=== PATIENT | male | born 1965 | race Caucasian/White ===

== ENCOUNTER → 2022-02-17 15:10 | Outpatient (CLI) | payer OTHER, SELFPAY ==
--- NOTE | ~2022-02-17 | CT_ITS ---
EXAMINATION: CT abdomen pelvis wo con DATE: 02/17/2022 15:28 INDICATION: Abdominal distention TECHNIQUE: Computed tomography (CT) of the abdomen and pelvis was performed without intravenous contr ast. Automated exposure control and iterative reconstruction technique were employed. The dose-length product was 1158.17 mGy-cm. COMPARISON: None FINDINGS: Small posterior layering left pleural effusion with mild dependent compressive atelectasis in the lef t lower lobe. Mild elevation right hemidiaphragm with tiny right pleural effusion and mild right basi lar atelectasis. Finally there is mild discoid atelectasis at the lingula. Heart size is normal. Athe rosclerotic coronary artery calcification. No pericardial effusion. Large amount of ascites throughout the abdomen and pelvis. Shrunken and nodular cirrhotic liver. Like ly secondary portal venous hypertension with splenomegaly measuring 18.4 cm in maximal length as well as splenorenal collaterals. Gallbladder, pancreas, bilateral adrenal glands and kidneys are normal. Diffuse mesenteric edema. Bladder is decompressed. No bowel obstruction. No pathologically enlarged a bdominal or pelvic lymphadenopathy. There are bridging osteophytes at multiple levels in the mid to l ower thoracic spine, consistent with diffuse idiopathic skeletal hyperostosis (DISH). IMPRESSION: 1. Cirrhosis with likely secondary large amount of ascites in the abdomen and pelvis and portal venou s hypertension with splenomegaly and splenorenal collaterals. 2. Small left and tiny right pleural effusions. Reviewed, dictated and finalized at location B. IMPRESSION: 1. Cirrhosis with likely secondary large amount of ascites in the abdomen and p roger and portal venous hypertension with splenomegaly and splenorenal collater als. 2. Small left and tiny right pleural effusions.
== END ==
PROVIDERS: PCP Family Medicine; Visit Provider Family Medicine
DX: R14.0 Abdominal distension (gaseous) (principal); R19.7 Diarrhea, unspecified; J90 Pleural effusion, not elsewhere classified; K74.60 Unspecified cirrhosis of liver
CPT/HCPCS: 74176

== ENCOUNTER 2022-02-17 16:36 | Emergency (ER) | payer OTHER, SELFPAY ==
[2022-02-17 16:59] VITALS: BP 127/82; PULSE 106; RESP 16; TEMP 37.2; O2SAT 94
[2022-02-17 17:21] LABS: Appearance Urine Clear (Clear); Basophils Percent Auto 0.5 % (0.2-1.2); Bilirubin Urine 1+ (Negative); Blood Urine Negative (Negative); Color Urine Yellow (Yellow); Eosinophils Absolute Auto 0.1 K/mm3 (0-0.3); Eosinophils Percent Auto 0.9 % (0-4.4); Glucose Urine UA Negative (Negative); Hematocrit 31.8 % (42.0-52.0); Hemoglobin 10.1 g/dL (14.0-18.0); Immature Granulocyte Absolute 0.01 K/mm3 (0.00-0.031); Immature Granulocyte Percent A 0.2 % (0-0.5); Ketones Urine Negative (Negative); Leukocyte Esterase Ur Negative LEU/UL (Negative); Lymphocytes Absolute Auto 0.76 K/mm3 (0.9-3.2); Lymphocytes Percent Auto 13.7 % (18.3-44.2); Mean Corpuscular HGB Conc 31.8 g/dl (32-36); Mean Corpuscular Hemoglobin 28.2 pg (26-34); Mean Corpuscular Volume 88.8 fl (80-100); Monocytes Absolute Auto 0.7 K/mm3 (0.1-0.6); Monocytes Percent Auto 12.3 % (2.6-8.5); Neutrophils Percent Auto 72.4 % (45.5-73.1); Nitrate Urine Negative (Negative); Platelet Count Result 134 k/mm3 (150-375); Protein Urine Negative (Negative); Red Blood Count 3.58 M/mm3 (4.6-6.20); Red Cell Distribution Width 16.8 % (11.5-14.5); White Blood Count 5.5 K/mm3 (4.5-10.0); pH Urine 6.5 (5.0-9.0)
[2022-02-17 17:30] LABS: Mucus Urine Rare /lpf; RBC Urine 0-2 /hpf (0-2); Squamous Epithelial Cell Urine Rare /hpf (Few); WBC Urine 0-3 /hpf
[2022-02-17 17:31] LABS: Alanine Aminotransferase 18 U/L (6-50); Albumin Level 3.2 g/dL (3.5-5.1); Alkaline Phosphatase 110 U/L (38-126); Anion Gap 4 mmol/L (8-16); Aspartate Amino Transferase 42 U/L (17-59); Bilirubin,Total 1.9 mg/dL (0.2-1.3); Blood Urea Nitrogen 9 mg/dL (9-20); Calcium 8.4 mg/dL (8.4-10.2); Carbon Dioxide 27 mmol/L (22-30); Chloride 105 mmol/L (98-107); Estimated CRCL calculation 149 ml/min; Estimated Glomerular Filt Rate > 60; Glucose 107 mg/dL (65-110); Potassium 3.4 mmol/L (3.4-5.0); Sodium 136 mmol/L (137-145)
[2022-02-17 17:39] LABS: Add Urine Microscopic? YES
[2022-02-17 19:21] VITALS: BP 136/87; PULSE 100; RESP 17; O2SAT 98
[2022-02-17 20:00] VITALS: BP 141/85; PULSE 100; RESP 27; O2SAT 97
--- NOTE | 2022-02-17 20:30 | ED.GENADULT ---
HPI - General Adult General Chief complaint: Unspecified Stated complaint: fluid on abdomen Time Seen by Provider: 02/17/22 19:07 History of Present Illness HPI narrative: Patient is a 56-year-old male who presents ER with abdominal ascites. Patient has history of cirrhosis of liver related to alcoholism. He sees Dr. Coronado. His primary care doctor got an outpatient CT today that showed large ascites so he told him to come to the ER to obtain a paracentesis. Patient has mild discomfort of the abdomen but reports its been ongoing for 2 months. He has no difficulty breathing. No fevers or chills or sweats. He is not on any blood thinning medications. Normal bowel and bladder function. Related Data Allergies Allergy/AdvReac Type Severity Reaction Status Date / Time codeine Allergy Mild Unknown Verified 02/17/22 19:19 meperidine Allergy Mild Unknown Verified 02/17/22 19:19 RAW FIG Allergy Intermediate RASH Uncoded 02/05/20 10:38 Review of Systems Review of Systems: All systems reviewed & are unremarkable except as noted in HPI and below Constitutional: Constitutional: Denies chills, Denies fatigue and Denies fever(s) Cardiovascular: Cardiovascular: Denies chest pain, Denies rapid heart rate and Denies radiating jaw, neck or arm pain Respiratory: Respiratory: Denies cough, Denies dyspnea and Denies wheezing Gastrointestinal: Gastrointestinal: Denies abdominal pain, Reports bloating, Denies nausea and Denies vomiting Neurologic: Denies syncope, Denies numbness and Denies tingling PMFSH Past Medical History Medical History (Updated 02/17/22 @ 21:02 by Chadwick Lambert MD) Cirrhosis of liver Diabetes Obstructive sleep apnea Surgical History Surgical History (Updated 02/17/22 @ 21:02 by Chadwick Lambert MD) No pertinent past surgical history Social History Social History (Updated 02/17/22 @ 21:02 by Chadwick Lambert MD) Social History: Quit drinking November 2021. Exam Narrative: GENERAL: Chronically ill-appearing, well-nourished, and in no acute distress. HEAD: Normocephalic, atraumatic. CHEST: Clear to auscultation. No respiratory distress. HEART: Regular rate and rhythm. Normal peripheral pulses. ABDOMEN: Protuberant firm abdomen, no erythema. Unable to auscultate bowel sounds due to fluid. EXTREMITIES: Normal range of motion. 3+ edema. SKIN: Warm, dry, no rash. NEURO: Alert and oriented x3. PSYCH: Normal mood and affect. Course Course Emergency Course: Patient resting comfortably. Discussed case with patient's GI physician Dr. Coronado. He would like me to attempt to put in an order for an ultrasound-guided paracentesis, he reports that he would like the patient to call him if he has any issues with scheduling and he will help him. Patient verbalized understanding of this. He does not wish to stay in the hospital as he has a severely ill that requires a lot of care that he aids. He is having noted difficulty breathing and just reports chronic discomfort and prefers to have outpatient procedure Vital Signs Vital signs: Vital Signs Temperature 98.9 F 02/17/22 16:59 Pulse Rate 106 H 02/17/22 16:59 Respiratory Rate 16 02/17/22 16:59 Blood Pressure 127/82 02/17/22 16:59 Pulse Oximetry 94 02/17/22 16:59 Oxygen Delivery Room Air 02/17/22 16:59 Temperature 98.9 F 02/17/22 16:59 Pulse Rate 100 02/17/22 20:00 Respiratory Rate 27 H 02/17/22 20:00 Blood Pressure 141/85 H 02/17/22 20:00 Pulse Oximetry 97 02/17/22 20:00 Oxygen Delivery Room Air 02/17/22 16:59 Medical Decision Making Vital Signs Vital Signs: Vital Signs Temperature 98.9 F 02/17/22 16:59 Pulse Rate 106 H 02/17/22 16:59 Respiratory Rate 16 02/17/22 16:59 Blood Pressure 127/82 02/17/22 16:59 Pulse Oximetry 94 02/17/22 16:59 Oxygen Delivery Room Air 02/17/22 16:59 Temperature 98.9 F 02/17/22 16:59 Pulse Rate 100 02/17/22 20:00 Respiratory Rate 27 H 02/17
[2022-02-17 20:31] LABS: Partial Thromboplastin Time 41.2 SECONDS (22.3-36.8)
[2022-02-17 20:43] LABS: INR 1.9; Prothrombin Time 21.1 Seconds (11.1-14.7)
[2022-02-17 21:00] VITALS: BP 115/60; PULSE 96; RESP 30; O2SAT 97
[2022-02-17 21:45] VITALS: BP 130/72; PULSE 96; RESP 30; O2SAT 96
== END 2022-02-17 21:52 | disposition home or self-care (01) ==
PROVIDERS: General Practice; Emergency Provider Emergency Medicine; PCP Family Medicine
DX: K70.31 Alcoholic cirrhosis of liver with ascites (principal); E11.9 Type 2 diabetes mellitus without complications
CPT/HCPCS: 36415; 80053; 81001; 85025; 85610; 85730; 99283

== ENCOUNTER 2022-02-19 09:52 | Outpatient (CLI) | payer OTHER, SELFPAY ==
--- NOTE | ~2022-02-19 | US_ITS ---
EXAMINATION: US paracentesis abd w/image DATE: 02/19/2022 11:30 INDICATION: Ascites. TECHNIQUE: The procedure and its risks, benefits, and alternatives were discussed with the patient. P otential risks discussed included bleeding and infection. The skin was prepped and draped in sterile fashion. 1% lidocaine was used for local anesthesia. Under ultrasound guidance, a 5 Fr catheter with trochar was advanced into the ascites in the left lower quadrant. Fluid was aspirated. The catheter w as removed, and a dressing was applied. There were no immediate complications. FINDINGS: Ultrasound images demonstrate ascites and the catheter within the fluid. IMPRESSION: 1. Successful ultrasound-guided paracentesis yielding 5000 mL of clear, yellow fluid. Reviewed, dictated and finalized at location A.
== END 2022-02-19 09:53 | disposition home or self-care (01) ==
PROVIDERS: PCP Family Medicine; Visit Provider Emergency Medicine
DX: R18.8 Other ascites (principal)
CPT/HCPCS: 49083

== ENCOUNTER 2022-07-28 15:30 | Outpatient (RCR) | payer OTHER, SELFPAY ==
--- NOTE | 2022-04-29 17:19 | PTOPEVAL1 ---
Assessment and note entered by Zo Goodman, PT Evaluation Information Assessment Status Evaluation Diagnosis weakness deconditioning Subjective Information Difficulty getting up from sitting wiithout arm support, difficulty walking long periods starts getting wobbly and needs to sit and rest. Reported Pain Level Pain Score 0: Self Report Assessment PT Clinical Summary Pt presents w/ weakness and severely reduced endurance. Pt reports this past year that he really let his health go . Recently reports in March had 50 lbs of fluid removed. Pt notes his and his 's health has declined and he would like to participate in therapy in order to improve his mobility and walking. Today pt bryson's significantly decreased endurance, only walking 185 ft in 2 minutes, requiring assistive device last 60 ft secondary to fatigue and feeling wobbly , and is noted to have increased respiratory rate. BLE strength is also diminished globally. Pt required seated rest breaks often in evaluation in order to continue to participate. Pt bryson's motivated attitude and participated fully in evaluation to the best of his ability. Pt will benefit from physical therapy in order to improve strength, and endurance in order to improve functional mobility and independence. Plan of Care Interventions Therapeutic Activities,Therapeutic Exercise PT Services Indicated Yes These treatments will address the objective and functional deficits as defined above. The patient will be advanced safely and appropriately in order for the patient to progress towards his/her prior level of function. Additional exercises will be introduced and as well as a comprehensive home exercise program upon discharge, if needed, ?to ensure carryover of functional gains achieved in the clinic. This treatment plan has been reviewed and agreement upon by the patient.
--- NOTE | 2022-05-11 15:23 | PCPTNOTE ---
Patient called & cancelled scheduled appointment this date due to not being able to make it.
--- NOTE | 2022-05-27 17:01 | PTOPPROG ---
Assessment and note entered by Zo Goodman, PT Progress Report Assessment Status Progress Diagnosis weakness deconditioning Subjective Information Pt reports has been working on getting up and down from sitting without use of arms. Feels he is much improved in his endurance. Notes is better able to care for himself and with less rest breaks. Pt current goals are to be able to get up from the ground easier, be able to walk longer distances/times without rest, and be able to go up and down stairs to his basement in a normal pattern. Assessment PT Clinical Summary Pt presents for progress assessment today after 4 weeks of therapy. Pt demo's significant improvement in endurance increasing time of ambulation from less than 2 minutes to 6 min and 53 seconds, doubled his speed in the 2 min walk test, decreased his times in the sit<>stand 5 times and TUG testing by ~30% each. He demos increased strength of hips by 1/2 to full muscle grade as well. However, pt cont to be below the average for strength, and endurance as well as continued difficulty with higher level mobility such as stairs and getting up and down from the ground. PT feels he would like to continue improving as well and has yet to plateau in his progress. Thus pt would benefit from continued therapy to address deficits, and provide pt with education to allow him to continue improvements and maintain improvements independently upon completion of plan of care. Plan of Care Interventions Gait Training,Patient/Caregiver Educati, Therapeutic Activities,Therapeutic Exercise,Self- Care/Home Management PT Services Indicated Yes These treatments will address the objective and functional deficits as defined above. The patient will be advanced safely and appropriately in order for the patient to progress towards his/her prior level of function. Additional exercises will be introduced and as well as a comprehensive home exercise program upon discharge, if needed, ?to ensure carryover of functional gains achieved in the clinic. This treatment plan has been reviewed and agreement upon by the patient.
--- NOTE | 2022-07-13 13:08 | PCPTNOTE ---
Patient did not show up for scheduled appointment this date. Called patient and connected him with the front end developer designer to reschedule
--- NOTE | 2022-07-21 15:34 | PCPTNOTE ---
pt called and canceled today's reevaluation appt due to illness, and rescheduled for next week.
--- NOTE | 2022-07-28 16:46 | PTOPREEVAL ---
Assessment and note entered by Derrell Goodman, PT Evaluation Information Assessment Status Re-evaluation Diagnosis weakness, deconditioning Subjective Information Patient reports he still feels weak, but also reports he was able to go up and down his stairs with the railing, but no rest breaks and stops and has also reported being able to get off the floor not from falls but because he is tinkering on furniture. Reported Pain Level Pain Score 0: Self Report Additional Pain Score Comments reports had back pain earlier this week, but is gone now. Assessment PT Clinical Summary Pineda is a 56 year old male coming to physical therapy since Apr 29 for endurance and strengthening. He has made great improvements, meeting all of his goals. He still feels like he needs to work on his stamina and I agree. We are starting him on a progressive HEP for strengthening and a progressive walking program to build up stamina. The game plan is using this cycle of physical therapy for education and how to transition to a gym for workouts. Plan of Care Interventions Electrical Stimulation,Gait Training,Hot Pack/Cold Pack,Manual Therapy,Neuro Re-education,Patient/ Caregiver Education,Therapeutic Activities, Therapeutic Exercise,Ultrasound PT Services Indicated Yes Treatment Frequency and 1-2x/wk for 4 weeks Duration These treatments will address the objective and functional deficits as defined above. The patient will be advanced safely and appropriately in order for the patient to progress towards his/her prior level of function. Additional exercises will be introduced and as well as a comprehensive home exercise program upon discharge, if needed, ?to ensure carryover of functional gains achieved in the clinic. This treatment plan has been reviewed and agreement upon by the patient.
== END 2022-07-28 23:59 | disposition home or self-care (01) ==
LOC: ANHPT 15:30
PROVIDERS: PCP Family Medicine; Visit Provider Internal Medicine Gastroenterology
DX: K70.31 Alcoholic cirrhosis of liver with ascites (principal); E11.65 Type 2 diabetes mellitus with hyperglycemia; G47.33 Obstructive sleep apnea (adult) (pediatric); E88.81 Metabolic syndrome and other insulin resistance; Z99.89 Dependence on other enabling machines and devices
CPT/HCPCS: 97110; 97162; 97530

== ENCOUNTER 2022-08-23 12:30 | Outpatient (RCR) | payer OTHER, SELFPAY ==
--- NOTE | 2022-08-12 10:51 | PCPTNOTE ---
Patient did not show up for scheduled appointment this date. Called Pt and left voice mail about missed appointment. Reminded Pt of upcoming appointment on 08/16/22 @14:00.
--- NOTE | 2022-08-23 16:48 | PTOPDC ---
Assessment and note entered by Derrell Goodman, PT Evaluation Information Assessment Status Discharge Diagnosis weakness, deconditioning Subjective Information Patient reports he was feeling run down on Tuesday after getting the COVID shot and he is retaining water even with increased water pills. He almost has a fall on Tuesday, but caught himself. He is walking at the grocery store every other day. Reported Pain Level Pain Score 0: Self Report Assessment PT Clinical Summary Pineda is a 56 year old man coming into the clinic for weakness and deconditioning. He has been coming since and attended 10 visits. He has improved endurance and strength. His future prognosis is guarded secondary to medical comorbidities. He has been educated on a progressive exercise routine and a walking program to help him continue to get stronger and have more endurance. Discharge from skilled physical therapy at this time. Plan of Care PT Services Indicated No Treatment Frequency and discharge from skilled physical therapy. Duration
== END 2022-08-24 13:43 | disposition home or self-care (01) ==
LOC: ANHPT 12:30
PROVIDERS: PCP Family Medicine; Visit Provider Internal Medicine Gastroenterology
DX: K70.31 Alcoholic cirrhosis of liver with ascites (principal); E11.65 Type 2 diabetes mellitus with hyperglycemia; G47.33 Obstructive sleep apnea (adult) (pediatric); E88.81 Metabolic syndrome and other insulin resistance; Z99.89 Dependence on other enabling machines and devices
CPT/HCPCS: 97110; 97116; 97530; 99199

== ENCOUNTER 2023-02-17 08:38 | Outpatient (CLI) | payer OTHER, SELFPAY ==
--- NOTE | ~2023-02-17 | US_ITS ---
EXAMINATION: US abdomen limited DATE: 02/17/2023 09:15 INDICATION: Nonalcoholic fatty liver disease TECHNIQUE: Multiple grayscale and Doppler ultrasound images of the abdomen were obtained. COMPARISON: CT, 02/17/2022 FINDINGS: The head and body of the pancreas are normal. The pancreatic tail is obscured by bowel gas. There is coarsened echotexture of the liver. The liver surface is nodular. A small volume of ascites is present. There is bidirectional flow in the portal vein. The gallbladder is normal with no abnorm al wall thickening, pericholecystic fluid or stones. The normal common bile duct measures 3 mm. There was no sonographic Márquez sign. IMPRESSION: 1. Cirrhosis with portal hypertension and small volume of ascites. Reviewed, dictated and finalized at location L.
== END 2023-02-17 08:39 | disposition home or self-care (01) ==
PROVIDERS: PCP Family Medicine; Visit Provider Internal Medicine Gastroenterology
DX: K76.0 Fatty (change of) liver, not elsewhere classified (principal); K70.31 Alcoholic cirrhosis of liver with ascites; K76.6 Portal hypertension
CPT/HCPCS: 76705

== ENCOUNTER 2023-03-08 07:52 | Outpatient (CLI) | payer OTHER, SELFPAY ==
[2023-03-08 08:56] LABS: Basophils Percent Auto 0.3 % (0.2-1.2); Eosinophils Absolute Auto 0.2 K/mm3 (0-0.3); Eosinophils Percent Auto 2.3 % (0-4.4); Hematocrit 30.9 % (42.0-52.0); Hemoglobin 9.7 g/dL (14.0-18.0); Immature Granulocyte Absolute 0.05 K/mm3 (0.00-0.031); Immature Granulocyte Percent A 0.8 % (0-0.5); Lymphocytes Percent Auto 13.9 % (18.3-44.2); Mean Corpuscular HGB Conc 31.4 g/dl (32-36); Mean Corpuscular Hemoglobin 25.3 pg (26-34); Mean Corpuscular Volume 80.5 fl (80-100); Monocytes Absolute Auto 0.9 K/mm3 (0.1-0.6); Monocytes Percent Auto 13.1 % (2.6-8.5); Neutrophils Absolute Auto 4.5 K/mm3 (1.3-6.7); Neutrophils Percent Auto 69.6 % (45.5-73.1); Platelet Count Result 114 k/mm3 (150-375); Red Blood Count 3.84 M/mm3 (4.6-6.20); Red Cell Distribution Width 18.1 % (11.5-14.5); White Blood Count 6.5 K/mm3 (4.5-10.0)
[2023-03-08 09:06] LABS: INR 1.5; Prothrombin Time 18.7 Seconds (11.1-14.7)
[2023-03-08 09:14] LABS: Alanine Aminotransferase 26 U/L (6-50); Albumin Level 3.3 g/dL (3.5-5.1); Alkaline Phosphatase 134 U/L (38-126); Aspartate Amino Transferase 33 U/L (17-59); Bilirubin,Total 0.8 mg/dL (0.2-1.3); Blood Urea Nitrogen 14 mg/dL (9-20); Calcium 8.6 mg/dL (8.4-10.2); Chloride 104 mmol/L (98-107); Cholesterol 127 mg/dL (0-200); Estimated Glomerular Filt Rate > 60; Glucose 97 mg/dL (65-110); HDL Direct 48 mg/dL; Potassium 4.2 mmol/L (3.4-5.0); Sodium 136 mmol/L (137-145); Triglycerides 36 mg/dL (<150)
[2023-03-08 09:20] LABS: LDL Cholesterol Direct 58 mg/dL
[2023-03-08 09:29] LABS: Anion Gap 4 mmol/L (8-16); Carbon Dioxide 28 mmol/L (22-30)
[2023-03-08 09:40] LABS: Prostate Specific Antigen 0.2 ng/mL (< OR = 4.0)
[2023-03-08 09:55] LABS: Creatinine Urine 111.5 mg/dL
[2023-03-08 10:12] LABS: MALB Creatinine Ratio < 5.4 mg/g (0-30); Microalbumin Urine Random < 6.0 mg/L (0-16.7)
== END 2023-03-08 07:53 | disposition home or self-care (01) ==
PROVIDERS: PCP Family Medicine; Referring Provider Internal Medicine Gastroenterology; Visit Provider Family Medicine
DX: E11.65 Type 2 diabetes mellitus with hyperglycemia (principal); Z12.5 Encounter for screening for malignant neoplasm of prostate; K76.0 Fatty (change of) liver, not elsewhere classified; K70.31 Alcoholic cirrhosis of liver with ascites
CPT/HCPCS: 36415; 80053; 80061; 82043; 82105; 84153; 85025; 85610; G0103